=== PATIENT | male | born 1945 | race Caucasian/White ===

== ENCOUNTER 2016-12-22 10:16 | Inpatient (IN) | payer MEDICARE, OTHER ==
[~2016-12-22] VITALS: Ht 160 cm; Wt 71.5 kg
--- NOTE | 2016-12-22 15:52 | CONS ---
DATE OF ADMISSION: 12/28/2016 DATE OF CONSULTATION: 12/28/2016 TYPE OF CONSULTATION: Preop evaluation. Dear Dr. Moreno: Thank you very much for allowing me to evaluate the above patient, a 71-year-old male who is to unde rgo left knee surgery. HISTORICAL EVENTS: As you well know, this patient has had progressive disabling pain involving his left knee and for this and would like to proceed with surgery. Preoperative evaluation reveals the absence of cough, wheezing, shortness of breath, nausea, vomiting. He denies chest pain at rest or with exertion. Denies radiating neck, arm or jaw discomfort. He denies nausea, vomiting, abdomina l pain, unusual constipation or diarrhea and denies symptoms of gastrointestinal bleeding with re view of systems being unrevealing. MEDICATIONS 1. Metformin 500 b.i.d. 2. Atorvastatin 40 per day. 3. Glimepiride 2 mg per day. 4. Aspirin 81 mg per day. 5. [place] 3 at 1000 mg per day. 5. Ambien 5 at bedtime p.r.n. PAST MEDICAL HISTORY: Includes: 1. Diabetes, onset in 1999. 2. Hyperlipidemia. 3. No history of heart disease. 4. Prior cholecystectomy. ALLERGIES: NONE. FAMILY HISTORY: Positive for coronary disease and breast cancer. 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 PHYSICAL EXAMINATION: GENERAL: Overweight male in no acute distress. VITAL SIGNS: BP 103/72, respirations were 18. He was afebrile. EYES: Extraocular muscles were full. NOSE, MOUTH, AND THROAT: Normal. NECK: Supple. There was no jugular venous distention, thyroid enlargement or adenopathy. Carotids 2+, no bruits. LUNGS: Clear. HEART: Rhythm regular, no murmur. No third or fourth sound. ABDOMEN: Nontender. Liver and spleen were not palpable. No masses or tenderness were noted. EXTREMITIES: No edema. Calves nontender. Pulses 2+. NEUROLOGIC: No lateralizing motor weakness. IMPRESSION: I perceive no problems with the planned surgical intervention pending lab review. I wi ll gladly follow him postoperatively with you. Dictated By: MARION MANCILLA MD MR/NTS Conf#: [id number] DID#: [id number] CC: TASHA MORENO MD;*[facility]*
[2016-12-27 10:08] VITALS: Ht 160 cm; Wt 71.5 kg
[2016-12-28] VITALS (23 sets, daily range): BP systolic 91–126; BP diastolic 46–75; PULSE 65–96; RESP 11–25
[2016-12-28] MEDS ORDERED: [UNRECOGNIZED DRUG - REMARK] IRR SCH ×7 (05:00)
[2016-12-28] MEDS ORDERED: KNEE PAIN COCKTAIL VANCO INJ SCH ×6 (05:00)
[2016-12-28] MEDS: LACTATED RINGER'S 1,000 ML IV SCH (05:41)
[2016-12-28] MEDS ORDERED: BUPIVACAINE 0.5% (SDV) 40 ML, morphine SULFATE (PF) 10 MG, CLONIDINE 100 MCG, EPINEPHri... IRR SCH ×7 (06:00)
[2016-12-28] MEDS ORDERED: DEXAMETHASONE 4 MG/ML 1 ML INJ IV ONE (06:00)
[2016-12-28] MEDS ORDERED: FAMOTIDINE 20 MG TAB PO ONE (06:00)
[2016-12-28] MEDS ORDERED: CELECOXIB 200 MG CAP PO ONE (06:00)
[2016-12-28] MEDS ORDERED: CEFAZOLIN 2 GM/50 ML (PMX) 50 ML IVPB ONE (06:00)
[2016-12-28] MEDS ORDERED: TRANEXAMIC ACID 700 MG in SOD CHLORIDE 0.9% 100 ML IVPB ONE ×6 (06:00)
[2016-12-28] MEDS ORDERED: METOCLOPRAMIDE 10 MG TAB PO ONE (06:00)
[2016-12-28] MEDS ORDERED: D5W-0.45 NACL + KCL 20 MEQ 1,000 ML IV SCH (06:42)
[2016-12-28] MEDS ORDERED: GLYCOPYRROLATE 0.4 MG INJ ONE (06:48)
[2016-12-28] MEDS ORDERED: ETOMIDATE 20 MG INJ ONE (06:48)
[2016-12-28] MEDS ORDERED: NEOSTIGMINE 3 MG/3 ML SYRINGE ONE (06:48)
[2016-12-28] MEDS ORDERED: PROPOFOL 100 ML ONE (06:48)
[2016-12-28] MEDS ORDERED: VANCOMYCIN 1 GM INJ ONE (06:49)
[2016-12-28] MEDS ORDERED: ROPIVACAINE 0.5 % 30 ML VIAL ONE (06:49)
[2016-12-28] MEDS ORDERED: ONDANSETRON 4 MG INJ ONE (06:49)
[2016-12-28] MEDS ORDERED: METHYLENE BLUE 10 MG/ML VIAL ONE (06:49)
[2016-12-28] MEDS ORDERED: POLYMYXIN/BACITRACIN 1L IRRIG ONE (06:49)
[2016-12-28] MEDS ORDERED: MIDAZOLAM 1 MG/ML 2 ML INJ ONE (06:49)
[2016-12-28] MEDS ORDERED: FENTAnyl 50 MCG/ML VIAL ONE (06:49)
[2016-12-28] MEDS ORDERED: morphine SULFATE/PF (10 MG/10 ML) INJ ONE (06:49)
[2016-12-28] MEDS ORDERED: MAGNESIUM HYDROXIDE 30ML CUP PO PRN (07:00)
[2016-12-28] MEDS ORDERED: HYDROmorphONE 2 MG/ML SYG IV PRN ×2 (07:00)
[2016-12-28] MEDS ORDERED: ONDANSETRON 4 MG INJ IV PRN ×2 (07:00→08:30)
[2016-12-28] MEDS ORDERED: HYDROmorphONE 1 MG/ML SYG IV PRN (07:00)
[2016-12-28] MEDS ORDERED: ACETAMINOPHEN 500 MG TAB PO PRN (07:00)
[2016-12-28] MEDS ORDERED: OXYCODONE/ACETAMINOPHEN (5/325) TAB PO PRN (07:00)
[2016-12-28] MEDS ORDERED: ROCURONIUM 50 MG INJ ONE (07:00)
[2016-12-28] MEDS ORDERED: ASPIRIN (EC) 325 MG TAB PO ONE (07:00)
[2016-12-28] MEDS ORDERED: NALOXONE (0.4 MG/ML) INJ IV PRN ×2 (07:00→08:30)
[2016-12-28] MEDS ORDERED: METHYLENE BLUE 1% 10 ML INJ TOP ONE (07:05)
[2016-12-28] MEDS ORDERED: POLYMYXIN/BACITRACIN 1L IRRIG IRR ONE (07:05)
[2016-12-28] MEDS ORDERED: VANCOMYCIN 1 GM INJ IRR ONE (07:05)
[2016-12-28] MEDS ORDERED: GLIM2TAB PO (07:07)
[2016-12-28] MEDS ORDERED: METF-382 PO (07:07)
[2016-12-28] MEDS ORDERED: ZOLP5TAB6 PO (07:08)
[2016-12-28] MEDS ORDERED: ATOR40TA68 PO (07:08)
[2016-12-28] MEDS ORDERED: CHRO1000 PO (07:09)
--- NOTE | 2016-12-28 07:09 | HPN ---
Date/Time of Note Date/Time of Note DATE: 12/28/16 TIME: 07:09 Interval H&P Admission Note Pt. seen H&P reviewed: No system changes NATALIE WALTER MD Dec 28, 2016 07:09
[2016-12-28] MEDS ORDERED: turmeric curcumin (07:11)
[2016-12-28] MEDS ORDERED: [UNRECOGNIZED DRUG - CODE] PO (07:12)
[2016-12-28] MEDS ORDERED: MAGN100P PO (07:13)
[2016-12-28] MEDS ORDERED: MEPERIDINE 25 MG INJ IV PRN (08:30)
[2016-12-28] MEDS ORDERED: TRIMETHOBENZAMIDE 100 MG/ML VIAL IM PRN (08:30)
[2016-12-28] MEDS ORDERED: LABETALOL HCL 20MG INJ IV PRN (08:30)
[2016-12-28] MEDS ORDERED: HYDROmorphONE (0.2 MG/ML) 10ML SYG IV PRN ×3 (08:30)
[2016-12-28] MEDS ORDERED: hydrALAzine 20 MG INJ IV PRN (08:30)
[2016-12-28] MEDS ORDERED: MIDAZOLAM 1 MG/ML 2 ML INJ IV PRN (08:30)
[2016-12-28] MEDS ORDERED: FENTAnyl 50 MCG/ML VIAL IV PRN ×3 (08:30)
[2016-12-28] MEDS ORDERED: DIPHENHYDRAMINE 50 MG INJ IV PRN (08:30)
[2016-12-28] MEDS ORDERED: EPHEDrine SULFATE 50 MG/5 ML SYG IV PRN (08:30)
[2016-12-28] MEDS: CEFAZOLIN 2 GM/50 ML (PMX) 50 ML IVPB SCH ×2 (10:42→18:00)
--- NOTE | 2016-12-28 11:03 | OPR ---
DATE OF OPERATION: 12/28/2016 PREOPERATIVE DIAGNOSIS: Osteoarthritis, medial compartment, left knee. POSTOPERATIVE DIAGNOSIS: Osteoarthritis, medial compartment, left knee. SURGEON: Tasha Thomson MD MOLDED FRAMES ASSEMBLER: Derrek Frye MD The business assistant functioned throughout the case to protect the collateral ligament and patellar tendon, allow for positioning of the knee and cementation technique , and was instrumental to the performance of this procedure. ANESTHESIA: General spinal plus adductor nerve block. OPERATION: Left medial compartment replacement. Arthrex size 4 femur, 2 tibia, 8 polyethylene, vitamin E impregnated. PROCEDURE IN DETAIL: The patient was taken to the operating room and given spinal anesthesia, general anesthesia. The left lower extremity was prepped and draped in the usual manner. The left knee came to 0 degrees extension, full flexion and Aden trace negative. A medial peripatellar incision was made. Grade 4 changes in the medial compartment of the left knee. The patellofemoral joint was pristine. The lateral compartment was intact. The lateral meniscus was intact. The ACL was intact. External alignment guide was used to cut the tibia in slight varus. The Arthrex sizing block was then used to cut 16 mm space in extension and a 17 mm space in flexion. Trial reduction carried out allowing a 3 mm tongue blade in flexion and 2 in extension. The joint was copiously irrigated. The tibia was inserted with cement, the femur and 8 mm trial. An 8 mm polyethylene was chosen. Tourniquet released. Tourniquet time was 49 minutes. Hemostasis was excellent. The capsule was closed with interrupted #1 Dexon. The subcutaneous was closed with 3-0 Dexon and the skin was closed with 4 -0 Maxon. Steri-Strips and a compressive dressing applied. The patient tolerated the procedure well. Dictated By: TASHA ADAIR/RICH Conf#: [id number] DID#: [id number] MTDD
--- NOTE | 2016-12-28 12:12 | RADRPT ---
PROCEDURE: XR Left Knee. CLINICAL INDICATION: Left knee pain. Postop. TECHNIQUE: Two views. Frontal and lateral. COMPARISON: No prior studies are available for comparison. FINDINGS: There is no fracture or dislocation. Gas is present in the soft tissues from the recent surgery. There is a partial left knee arthroplasty involving the medial joint compartment. This appears to b e in satisfactory position. There is no lytic or blastic lesion. There is no joint effusion. IMPRESSION: 1. Satisfactory postoperative appearance of the left knee. RPTAT: QQ .Reggie Hernandez MD, MD Date Time Electronically viewed and signed by .Reggie Hernandez MD, MD on 12/28/2016 12:12 .R/
--- NOTE | 2016-12-28 12:12 | RADRPT ---
PROCEDURE: XR Left Tibia and Fibula. CLINICAL INDICATION: Left lower leg pain. Intraoperative. TECHNIQUE: Single frontal view. Limited. COMPARISON: No prior studies are available for comparison. FINDINGS: This is a limited study as the knee is not included on the image. There is a surgical device overly ing the ankle. IMPRESSION: 1. Satisfactory limited frontal view of the left tibia and fibula. RPTAT: QQ .Reggie Hernandez MD, MD Date Time Electronically viewed and signed by .Reggie Hernandez MD, MD on 12/28/2016 12:11 .R/
--- NOTE | 2016-12-28 13:21 | CONS ---
DATE OF ADMISSION: 12/28/2016 DATE OF CONSULTATION: 12/28/2016 Thank you very much for allowing me to evaluate this 71-year-old male who just underwent left knee s urgery. HISTORICAL EVENTS: As you well know, this patient has had increasing pain involving his left knee a nd for this ultimately elected to proceed with surgery today. Postoperatively, on the orthopedic fl oor, he notes mild difficulty swallowing but denies cough, wheezing, shortness of breath, nausea, vo miting, abdominal or chest pain and has minimal discomfort involving the left knee. PAST MEDICAL HISTORY: Includes: 1. Adult onset diabetes. 2. Hyperlipidemia. 3. Prior cholecystectomy. ALLERGIES: NONE. FAMILY HISTORY: Positive for coronary artery disease and breast cancer. 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 MEDICATIONS: 1. Metformin 500 b.i.d. 2. Atorvastatin 40 per day. 3. Glimepiride 2 mg per day. 4. Aspirin 81 mg per day. 5. [place] 3 1000 mg per day. 6. Ambien 5 at bedtime p.r.n. 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 VITAL SIGNS: BP 122/80, pulse 70, respirations were 20, he was afebrile. EYES: Extraocular muscles were full. NOSE, MOUTH, AND THROAT: Normal. NECK: Supple. There was no jugular venous distention, thyroid enlargement or adenopathy. Carotids 2+. LUNGS: Clear. HEART: Rhythm regular. ABDOMEN: Nontender. Liver and spleen were not palpable. No masses or tenderness were noted. EXTREMITIES: The left was bandaged. The right, no calf tenderness or edema. IMPRESSION: 1. Stable postoperative left knee. 2. History of diabetes. We will monitor his sugars. Continue Glimepiride and use short-acting in sulin before meals as needed. 3. Hyperlipidemia, continue atorvastatin 40 mg per day. 4. Will follow him daily and observe for signs and symptoms of thromboembolic disease despite an ap propriate DVT prophylaxis. Dictated By: MARION ORANTES/RICH Conf#: [id number] DID#: [id number]
[2016-12-28] MEDS ORDERED: DEXTROSE 50% 50 ML SYRINGE IV PRN ×2 (14:00)
[2016-12-28] MEDS ORDERED: GLUCAGON 1 MG INJ IM PRN (14:00)
[2016-12-28] MEDS ORDERED: GLUCOSE GEL 15 GRAM TUBE BUCCAL PRN (14:00)
[2016-12-28] MEDS ORDERED: GLUCOSE GEL 15 GRAM TUBE PO PRN ×2 (14:00)
[2016-12-28] MEDS ORDERED: CEFAZOLIN 2 GM/50 ML (PMX) 50 ML IVPB SCH (14:00)
[2016-12-28] MEDS: SOD CHLORIDE 0.9% 1,000 ML IV SCH (15:25)
[2016-12-28] MEDS: traMADol 50 MG TAB PO SCH ×2 (18:00→23:46)
[2016-12-28] MEDS: metFORMIN 500 MG TAB PO SCH (18:01)
[2016-12-28] MEDS: INSULIN ASPART [NOVOLOG] 3 ML PEN SC SCH (18:03)
[2016-12-28] MEDS ORDERED: ATORVASTATIN 40 MG TAB PO SCH (21:00)
[2016-12-28] MEDS: CELECOXIB 200 MG CAP PO SCH (21:23)
[2016-12-28] MEDS: METOCLOPRAMIDE 10 MG TAB PO SCH (21:23)
[2016-12-28] MEDS: FAMOTIDINE 20 MG TAB PO SCH (21:23)
[2016-12-28] MEDS: SENNA/DOCUSATE NA (8.6MG/50MG) TAB PO SCH (21:23)
[2016-12-29] MEDS: SOD CHLORIDE 0.9% 1,000 ML IV SCH ×2 (01:30→02:11)
[2016-12-29] MEDS: CEFAZOLIN 2 GM/50 ML (PMX) 50 ML IVPB SCH (02:10)
[2016-12-29] MEDS: LACTATED RINGER'S 1,000 ML IV SCH (04:48)
[2016-12-29 05:59] LABS: POTASSIUM 4.6 mmol/L (3.5-5.1)
[2016-12-29 06:02] LABS: CREATININE 0.8 mg/dl (0.61-1.24)
[2016-12-29 06:03] LABS: CALCIUM 8.3 mg/dl (8.4-10.2)
[2016-12-29 06:16] LABS: BASOPHILS % 0.1 % (0.0-2.0); HEMATOCRIT 36.4 % (42.0-52.0); HEMOGLOBIN 12.7 g/dl (14.0-18.0); LYMPHOCYTES # 1.6 10^3/ul (0.8-2.9); LYMPHOCYTES % 10.4 % (15.0-51.0); MEAN CORPUSCULAR HGB CONC 34.9 g/dl (32.0-37.0); MEAN CORPUSCULAR VOLUME 91.7 fl (82.0-101.0); MONOCYTE # 0.9 10^3/ul (0.3-0.9); MONOCYTES % 5.5 % (0.0-11.0); NEUTROPHIL # 12.9 10^3/ul (1.6-7.5); PLATELET COUNT 255 10^3/UL (140-440); RED BLOOD COUNT 3.96 10^6/ul (4.70-6.10); RED CELL DISTRIBUTION WIDTH 13.3 % (11.5-14.5); UNCORRECTED WBC 15.4 10^3/ul (4.8-10.8); WHITE BLOOD COUNT 15.4 10^3/ul (4.8-10.8)
[2016-12-29 06:19] LABS: CONDITION 1
[2016-12-29] MEDS: traMADol 50 MG TAB PO SCH ×2 (06:34→12:43)
[2016-12-29 07:37] LABS: ADD UMIC YES; URINE BILIRUBIN (Dip) NEGATIVE (NEGATIVE); URINE BLOOD (Dip) 1+ (NEGATIVE); URINE COLOR LT. YELLOW (YELLOW); URINE GLUCOSE (Dip) NEGATIVE (NEGATIVE); URINE KETONES (Dip) NEGATIVE (NEGATIVE); URINE LEUKOCYTE ESTERASE (Dip) TRACE (NEGATIVE); URINE NITRITE (Dip) NEGATIVE (NEGATIVE); URINE TOTAL PROTEIN (Dip) NEGATIVE (NEGATIVE); URINE UROBILINOGEN (Dip) 0.2 E.U./dL (0.1-1.0)
[2016-12-29] MEDS ORDERED: GLIMEPIRIDE 2 MG TAB PO SCH (07:50)
[2016-12-29 08:06] LABS: BACTERIA,URINE RARE
[2016-12-29 08:09] VITALS: BP 108/64; RESP 19
[2016-12-29] MEDS: CELECOXIB 200 MG CAP PO SCH (08:52)
[2016-12-29] MEDS: metFORMIN 500 MG TAB PO SCH (08:53)
[2016-12-29] MEDS: FAMOTIDINE 20 MG TAB PO SCH (08:53)
[2016-12-29] MEDS: SENNA/DOCUSATE NA (8.6MG/50MG) TAB PO SCH (08:54)
[2016-12-29] MEDS: METOCLOPRAMIDE 10 MG TAB PO SCH (08:55)
[2016-12-29] MEDS: OXYCODONE/ACETAMINOPHEN (5/325) TAB PO PRN ×2 (08:56→15:59)
[2016-12-29] MEDS ORDERED: ASPIRIN (EC) 325 MG TAB PO SCH (09:00)
[2016-12-29] MEDS: INSULIN ASPART [NOVOLOG] 3 ML PEN SC SCH ×2 (09:04→11:10)
--- NOTE | 2016-12-29 09:20 | PN ---
DATE: 12/29/2016 Postoperative day 1. Vital signs stable. Out of bed. Little pain. No calf tenderness. PLAN: Discharge if okay with Dr. Wilcox. Dictated By: TASHA ADAIR/RICH Conf#: [id number] DID#: [id number]
--- NOTE | 2016-12-29 12:16 | CONS ---
Date/Time of Note Date/Time of Note DATE: 12/29/16 TIME: 12:15 Assessment/Plan Assessment/Plan Additional Assessment/Plan 1. Stable postoperative left knee. 2. History of with elev sugars, not unexpected 3. Hyperlipidemia, continue atorvastatin 40 mg per day. 4. Elev WBC, did not get steroids periop, will ck u.a and cult and get repeat cbc monday Consultation Date/Type/Reason Admit Date/Time Dec 28, 2016 at 05:23 Initial Consult Date Detailed Summary Respiratory: No cough, No shortness of breath Cardiovascular: No chest pain Gastrointestinal: no complaints Genitourinary: no complaints Musculoskeletal: bone/joint pain (mild left knee pain) Exam/Review of Systems Vital Signs Vitals Vital Signs Date Time Temp Pulse Resp B/P Pulse Ox O2 Delivery O2 Flow Rate FiO2 12/29/16 08:09 97.1 67 19 108/64 98 12/28/16 14:10 Nasal Cannula 2.0 Intake and Output 12/28/16 12/28/16 12/29/16 15:00 23:00 07:00 Intake Total 2500 ml 650 ml 2050 ml Output Total 325 ml 600 ml 1500 ml Balance 2175 ml 50 ml 550 ml Exam Neck: No jvd Respiratory: clear to auscultation Cardiovascular: regular rate and rhythm Gastrointestinal: soft Extremities: No edema (no edema and no calf tend) Results Result Diagram: 12/29/16 0444 12/29/16 0444 Results 24 hrs Laboratory Tests Test 12/28/16 17:37 12/29/16 04:05 12/29/16 04:44 12/29/16 08:10 Bedside Glucose 222 H 160 Urine Bacteria RARE Urine Bilirubin NEGATIVE Urine Clarity CLEAR Urine Color LT. YELLOW Urine Epithelial Cells RARE Urine Glucose NEGATIVE Urine Hemoglobin 1+ H Urine Ketones NEGATIVE Urine Leukocyte Esterase TRACE H Urine Microscopic RBC 2-5 Urine Microscopic WBC 0-2 Urine Nitrite NEGATIVE Urine Specific [place] <=1.005 L Urine Total Protein NEGATIVE Urine Urobilinogen 0.2 E.U./dL Urine pH 6.0 Anion Gap 12 Basophils # 0.0 Basophils % 0.1 Blood Urea Nitrogen 20 Calcium Level 8.3 L Carbon Dioxide Level 25 Chloride Level 103 Creatinine 0.80 Eosinophils # 0.0 Eosinophils % 0.0 Glucose Level 134 Hematocrit 36.4 L Hemoglobin 12.7 L Lymphocytes # 1.6 Lymphocytes % 10.4 L Mean Corpuscular Hemoglobin 32.0 Mean Corpuscular Hemoglobin Concent 34.9 Mean Corpuscular Volume 91.7 Mean Platelet Volume 8.0 Monocytes # 0.9 Monocytes % 5.5 Neutrophils # 12.9 H Neutrophils % 84.0 H Nucleated Red Blood Cells # 0.0 Nucleated Red Blood Cells % 0.0 Platelet Count 255 Potassium Level 4.6 Red Blood Count 3.96 L Red Cell Distribution Width 13.3 Sodium Level 135 White Blood Count 15.4 H Test 12/29/16 12:02 Bedside Glucose 104 Medications Medications Current Medications Lactated Ringer's (Lr) 1,000 ml @ 25 mls/hr Q24H IV ; Start 12/28/16 at 05:41 Tramadol HCl (Ultram) 50 mg Q6 PO Last administered on 12/29/16 06:34; Admin Dose 50 MG; Start 12/28/16 at 18:00 Oxycodone/ Acetaminophen (Percocet (5/ 325)) 1 tab Q3H PRN PO PAIN LEVEL 1-5; Start 12/28/16 at 07:00 Oxycodone/ Acetaminophen (Percocet (5/ 325)) 2 tab Q3H PRN PO PAIN LEVEL 6-10 Last administered on 12/29/16 08:56; Admin Dose 2 TAB; Start 12/28/16 at 07:00 Hydromorphone HCl (Dilaudid) 1 mg Q3H PRN IV PAIN LEVEL 1-3; Start 12/28/16 at 07:00 Hydromorphone HCl (Dilaudid) 1.5 mg Q3H PRN IV PAIN LEVEL 4-6; Start 12/28/16 at 07:00 Hydromorphone HCl (Dilaudid) 2 mg Q3H PRN IV PAIN LEVEL 7-10; Start 12/28/16 at 07:00 Naloxone HCl (Narcan) 0.2 mg Q2M PRN IV RESPIRATORY RATE LESS THAN 8; Start at 07:00 Senna/Docusate Sodium (Senokot-S) 1 tab BID PO Last administered on 12/29/16 08:54; Admin Dose 1 TAB; Start 12/28/16 at 21:00 Magnesium Hydroxide (Milk Of Mag) 30 ml BID PRN PO CONSTIPATION; Start at 07:00 Magnesium Hydroxide (Milk Of Mag) 30 ml HS PO ; Start 12/30/16 at 21:00 Ondansetron HCl (Zofran Inj) 4 mg Q4H PRN IV NAUSEA; Start 12/28/16 at 07:00 Acetaminophen (Tylenol Tab) 1,000 mg Q4H PRN PO TEMP GREATER THAN 100.4 (ORAL) ; Start 12/28/16 at 07:00 Celecoxib (Celebrex) 200 mg BID PO Last administered on 12/29/16 08:52; Admin Dose 200 MG; Start 12/28/16 at 21:00 Famotidine (Pepcid) 20 mg BID PO Last administered on 12/29/16 08:53; Admin Dose 20 MG; Start 12/28/16 at 21:00 Metoclopramide HCl (Reglan) 10 mg BID PO Last administered on 12/29/16 08:55; Admin Dose 10 MG; Start 12/28/16 at 21:00 Aspirin 325 mg 325 mg BID PO Last administered on 12/29/16 08:55; Admin Dose 325 MG; Start 12/29/16 at 09:00 Sodium Chloride (NS) 1,000 ml @ 80 mls/hr [id number] IV Last administered on 12/29 02:11; Admin Dose 80 MLS/HR; Start 12/28/16 at 13:00 Atorvastatin Calcium (Lipitor) 40 mg QHS PO Last administered on 12/28/16 21: 23; Admin Dose 40 MG; Start 12/28/16 at 21:00 Miscellaneous Information 1 ea NOTE XX ; Start 12/28/16 at 14:00 Glucose (Glutose) 15 gm Q15M PRN PO DECREASED GLUCOSE; Start 12/28/16 at 14:00 Glucose (Glutose) 22.5 gm Q15M PRN PO DECREASED GLUCOSE; Start 12/28/16 at 14: 00 Dextrose (D50w Syringe) 25 ml Q15M PRN IV DECREASED GLUCOSE; Start 12/28/16 at 14:00 Dextrose (D50w Syringe) 50 ml Q15M PRN IV DECREASED GLUCOSE; Start 12/28/16 at 14:00 Glucagon (Glucagen) 1 mg Q15M PRN IM DECREASED GLUCOSE; Start 12/28/16 at 14:00 Glucose (Glutose) 15 gm Q15M PRN BUCCAL DECREASED GLUCOSE; Start 12/28/16 at 14 :00 MARION MANCILLA MD Dec 29, 2016 12:16
[2016-12-29] MEDS ORDERED: ASPI325T32 PO (12:17)
[2016-12-30] MEDS ORDERED: MAGNESIUM HYDROXIDE 30ML CUP PO SCH (21:00)
== END 2016-12-29 19:00 | disposition home or self-care (01) | DRG 470 ==
LOC: UNDOADMIN 10:16 → ICU 10:16 → REC 12-28 05:23 → MS1 12-28 11:24
PROVIDERS: ADMIT Orthopaedic Surgery; ATTEND Orthopaedic Surgery
PROC: 0SRD0L9 Replacement of Left Knee Joint with Medial Unicondylar Synthetic Substitute, Cemented, Open Approach (ICD-10-PCS; principal; 2016-12-28 07:00)
DX: M17.12 Unilateral primary osteoarthritis, left knee (principal); E11.9 Type 2 diabetes mellitus without complications; E78.5 Hyperlipidemia, unspecified
CPT/HCPCS: 73560; 73590; 80048; 81001; 81003; 82962; 85025; 86850; 86900; 86901; 87086; 88304; 88311; 97110; 97116; 97162; J0171; J0690; J0735; J1100; J1815; J1885; J2250; J2274; J2405; J2710; J2795; J3010; J3370; J7030; J7120